=== PATIENT | female | born 1935 | race Caucasian/White ===

== ENCOUNTER 2024-12-26 22:41 | Inpatient (IN) | payer OTHER, SELFPAY ==
[2024-12-26] VITALS (10 sets, daily range): BP systolic 100–161; BP diastolic 59–94; PULSE 67–69
--- NOTE | 2024-12-26 13:53 | ED.GENMED ---
ED Provider Triage
<Yael Pelletier PA-C - Last Filed: 12/26/24 14:01>
-
Patient seen by provider in Triage?: Seen in Triage
89 y/o F CHF, AF on coumadin
CKD
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
here with generalized not feleing well x 1 week
some progressive lower abd pain and anorexia
no vomiting, diarrhea, fever, chills, sore throat
pt went to PCP and was sent to [facility] yesterday whree she waited 9 hours and LWBS
pt called the PCP and was told to come here instead
she has never been here
apparently in the office she hadelevated WBCs in her urine
no known aortic disease
A medical screening examination has been initiated by a qualified medical provider. Based on the assessment performed at this time, it has been determined that an emergent medical condition may exist and the patient has been informed that further
medical evaluation and possible additional diagnostic testing may be needed.
HPI: This is a medical evaluation conducted in person to initiate diagnostic evaluation and provide initial therapeutics. Please see further documentation by the treating clinician.
GENERAL: Alert , in no apparent distress
ENT: No visible abnormalities
LUNGS: No acute respiratory distress
NEUROLOGICAL: Alert and oriented
abdomen: maybe some mild lower abd tenderness; difficult while in the chair
SKIN: Skin intact. No visible changes.
MUSCULOSKELETAL: Moving extremities normally
PSYCH: Normal and appropriate interaction.
89-year-old female with history of a colon resection previously presents for lower abdominal pain, anorexia, not feeling well for about a week. May have some WBCs in the urine on testing by her family doctor. Patient has no UTI symptoms however.
She feels weak and she is dropping her blood pressure when she stands according to the family doctor. Patient does feel lightheaded
Will send screening labs, coags, UA, anticipate patient may need CT with oral contrast
History of Present Illness
<Yael Pelletier PA-C - Last Filed: 12/26/24 14:01>
General
Chief Complaint: Abdominal Pain
Time Seen by Provider: 12/26/24 17:40
<Sandy Salcedo DO - Last Filed: 12/26/24 20:37>
History of Present Illness
History of Present Illness:
89-year-old female with prior history of colon cancer and vulvar cancer, hypertension presenting to the emergency department for abdominal pain and generalized weakness and fatigue. Patient reports about 2 weeks ago she started to feel unwell with
nausea and abdominal discomfort. She lives in an independent facility, with GI bug going around the facility. She did not leave the room because she did not want to get more sick. Reports that she has had overall decreased p.o. intake. She has
had lightheadedness and fatigue. She went to her doctor yesterday, was noted to have weight loss and orthostatic hypotension, was advised to go to the ER. She went to [facility], however had to wait for 8 hours so went home. Does note that they
checked her urine, had some signs of infection. She notes generalized abdominal discomfort. Denies any vomiting. Denies any diarrhea. Denies fever. Denies additional acute medical complaints
Phy Exam
<Sandy Salcedo DO - Last Filed: 12/26/24 20:37>
Physical Exam
Physical Exam:
General: Well-appearing, no clinical signs of dehydration, nontoxic and in no acute distress
HEENT: protecting airway
Neck: appears supple
CV: Normal heart rate, regular rhythm
Resp: No accessory muscle use, no increased work of breathing, lungs clear to auscultation bilaterally
Abd: Soft and non-distended, generalized nonfocal tenderness
Extremities: No deformities, no swelling, no erythema
Neuro: alert, no focal neurologic deficit
: deferred
Rectal: deferred
Psych: Normal affect
Skin: Intact
Course
<Yael Pelletier PA-C - Last Filed: 12/26/24 14:01>
Orders/Labs/Results
Orders:
Orders
12/26/24 13:56
Electrocardiogram (*1) Urgent
Reason for Study: Abdominal Pain
EKG- Treatment ONCE
12/26/24 14:00
CT Abd/pel W Iv And Oral Contr Urgent
Comment:
Reason For Exam: abd pain, colon ca s/p resection;
Iohexol [Omnipaque] See Protocol PO NOW STA
12/26/24 14:22
COVID-19 Antigen Urgent
Source: Nasal Swab
Influenza A+B Rapid Molecular Urgent
SURESH Source: Nasal Swab
Specimen Description:
12/26/24 18:00
Complete Blood Count/With Diff Urgent
Comprehensive Metabolic Panel Urgent
Lipase Urgent
PTT Urgent
Prothrombin Time Urgent
12/26/24 18:24
Orthostatic VS- Treatment ONCE
0.9% Sodium Chloride 1000 ml [Nss] 1,000 ml IV BOLUS
12/26/24 20:27
Urinalysis Reflex To Culture Urgent
Date Specimen was Collected: 12/26/24
Time Specimen was Collected: 17:10
Abnormal Lab Results
12/26/24
18:00
MCH 26.3 L pg
(27.0-31.0)
MCHC 30.9 L g/dL
(33.0-37.0)
RDW 18.8 H %
(11.5-14.5)
Abs Immat Gran (auto) 0.1 H 10^3/uL
(0-0.05)
Absolute Neuts (auto) 7.6 H 10^3/uL
(1.4-6.5)
Absolute Lymphs (auto) 1.1 L 10^3/uL
(1.2-3.4)
Absolute Monos (auto) 1.1 H 10^3/uL
(0.1-0.6)
Immature Gran % 0.6 H %
(0-0.5)
Neutrophils % 76.0 H %
(42.2-75.2)
Lymphocytes % 10.5 L %
(20.5-51.1)
Monocytes % 10.5 H %
(1.7-9.3)
PT 46.4 H Sec
(11.4-14.6)
APTT 45.0 H Sec
(23.4-35.0)
BUN 24 H mg/dl
(7-17)
Creatinine 1.5 H mg/dL
(0.6-1.0)
Glucose 101 H mg/dl
(70-99)
Calcium 10.5 H mg/dl
(8.4-10.2)
Alkaline Phosphatase 168 H U/L
(38-126)
12/26/24 18:00
12/26/24 18:00
Vital Signs
Initial and Last Documented VS:
Initial Vital Signs
Temp Pulse Resp BP Pulse Ox
98 F 66 16 125/77 97
12/26/24 13:51 12/26/24 13:51 12/26/24 13:51 12/26/24 13:51 12/26/24 13:51
Last Documented Vital Signs
Temp Pulse Resp BP Pulse Ox
97.4 F 71 15 114/66 98
12/26/24 17:00 12/26/24 19:51 12/26/24 19:51 12/26/24 19:05 12/26/24 19:15
<Sandy Salcedo DO - Last Filed: 12/26/24 20:37>
Orders/Labs/Results
Orders:
Orders
12/26/24 13:56
Electrocardiogram (*1) Urgent
Reason for Study: Abdominal Pain
EKG- Treatment ONCE
12/26/24 14:00
CT Abd/pel W Iv And Oral Contr Urgent
Comment:
Reason For Exam: abd pain, colon ca s/p resection;
Iohexol [Omnipaque] See Protocol PO NOW STA
12/26/24 14:22
COVID-19 Antigen Urgent
Source: Nasal Swab
Influenza A+B Rapid Molecular Urgent
SURESH Source: Nasal Swab
Specimen Description:
12/26/24 18:00
Complete Blood Count/With Diff Urgent
Comprehensive Metabolic Panel Urgent
Lipase Urgent
PTT Urgent
Prothrombin Time Urgent
12/26/24 18:24
Orthostatic VS- Treatment ONCE
0.9% Sodium Chloride 1000 ml [Nss] 1,000 ml IV BOLUS
12/26/24 20:27
Urinalysis Reflex To Culture Urgent
Date Specimen was Collected: 12/26/24
Time Specimen was Collected: 17:10
Abnormal Lab Results
12/26/24
18:00
MCH 26.3 L pg
(27.0-31.0)
MCHC 30.9 L g/dL
(33.0-37.0)
RDW 18.8 H %
(11.5-14.5)
Abs Immat Gran (auto) 0.1 H 10^3/uL
(0-0.05)
Absolute Neuts (auto) 7.6 H 10^3/uL
(1.4-6.5)
Absolute Lymphs (auto) 1.1 L 10^3/uL
(1.2-3.4)
Absolute Monos (auto) 1.1 H 10^3/uL
(0.1-0.6)
Immature Gran % 0.6 H %
(0-0.5)
Neutrophils % 76.0 H %
(42.2-75.2)
Lymphocytes % 10.5 L %
(20.5-51.1)
Monocytes % 10.5 H %
(1.7-9.3)
PT 46.4 H Sec
(11.4-14.6)
APTT 45.0 H Sec
(23.4-35.0)
BUN 24 H mg/dl
(7-17)
Creatinine 1.5 H mg/dL
(0.6-1.0)
Glucose 101 H mg/dl
(70-99)
Calcium 10.5 H mg/dl
(8.4-10.2)
Alkaline Phosphatase 168 H U/L
(38-126)
12/26/24 18:00
12/26/24 18:00
Vital Signs
Initial and Last Documented VS:
Initial Vital Signs
Temp Pulse Resp BP Pulse Ox
98 F 66 16 125/77 97
12/26/24 13:51 12/26/24 13:51 12/26/24 13:51 12/26/24 13:51 12/26/24 13:51
Last Documented Vital Signs
Temp Pulse Resp BP Pulse Ox
97.4 F 71 15 114/66 98
12/26/24 17:00 12/26/24 19:51 12/26/24 19:51 12/26/24 19:05 12/26/24 19:15
<Sandy Salcedo, DO - Last Filed: 12/26/24 20:37>
MDM/Problems Addressed
MDM/Problems Addressed:
89-year-old female with prior history of colon cancer and vulvar cancer as well as hypertension presenting for fatigue, weakness, abdominal discomfort. Vital signs on arrival are normal.
On exam, patient is resting comfortably, no acute distress. She is nontoxic in appearance. She has generalized nonfocal tenderness abdomen. Given duration of symptoms, CT abdomen pelvis ordered prior to my assessment, in agreement with workup to
rule out acute intra-abdominal pathology. Patient had labs obtained prior to my assessment, relatively unremarkable, mild elevation of creatinine, which may be secondary to mild dehydration. Will repeat orthostatic vital signs, report that they
were positive at primary care doctor yesterday. Urinary tract infection is also consideration. Patient noted to have a positive urine infection at [facility] yesterday, however was never seen by provider to treat it.
20:20 - CT of the abdomen pelvis without acute findings. There is mention of subtle finding to the colon, which will need follow-up given her prior history of colon cancer. Orthostatics were positive with drop of blood pressure from sitting to
standing. Patient lives at home by herself, do feel unsafe disposition, fall risk. Patient notes she became dizzy upon standing. In addition INR is 5. Will hold Coumadin. Pending urinalysis with likely plan for admission
<Sandy Salcedo DO - Last Filed: 12/26/24 20:37>
*Critical Care Note
Total Time (30-74mins, 75-104mins- exclusive of procedures): Not Applicable
ED Attending Note
<Yael Pelletier PA-C - Last Filed: 12/26/24 14:01>
-
Portions of this chart may have been created with voice recognition software.� Occasional wrong word or��sound alike� substitutions may have occurred due to the inherent limitations of voice recognition software.
Discharge Plan
Departure
Referrals:
Geni Ryder MD [Family Provider] -
Interventions
Interventions:
*Risk Screen - Suicide Last Done: 12/26/24 14:03
*General Assessment Last Done: 12/26/24 18:22
*Neglect/Abuse Screening Last Done: 12/26/24 14:03
ED- Fall Risk Assessment Last Done: 12/26/24 18:22
*ED COVID-19 Vaccine History Last Done: 12/26/24 18:22
MW-Nmgvkw-Ghghduksyy Assessment Last Done: 12/26/24 18:22
Discharge Date and Time
Print Language: TAIWANESE
[2024-12-26 15:04] LABS: COVID-19 Antigen Negative (Negative)
[2024-12-26] MEDS: OMNIPAQUE 50 ML PO (17:15)
[2024-12-26 18:14] LABS: % Basophils 0.4 % (0-2); % Immature Granulocytes 0.6 % (0-0.5); % Lymphocytes 10.5 % (20.5-51.1); % Monocytes 10.5 % (1.7-9.3); Absolute Eosinophils 0.2 10^3/uL (0-0.7); Absolute Immature Granulocytes 0.1 10^3/uL (0-0.05); Absolute Lymphocytes 1.1 10^3/uL (1.2-3.4); Absolute Monocytes 1.1 10^3/uL (0.1-0.6); Absolute Neutrophils 7.6 10^3/uL (1.4-6.5); Hematocrit 45.6 % (37.0-47.0); Hemoglobin 14.1 g/dL (12.0-16.0); Mean Corp Hgb Conc. 30.9 g/dL (33.0-37.0); Mean Corpuscular Hgb 26.3 pg (27.0-31.0); Mean Corpuscular Volume 84.9 fL (81.0-99.0); Mean Platelet Volume 9.8 fL (7.4-10.4); Nucleated Red Blood Cells % 0 %; Platelet Count 262 10^3/uL (130-400); Red Blood Cell Count 5.37 10^6/uL (4.20-5.40); Red Cell Dist. Width 18.8 % (11.5-14.5)
[2024-12-26 18:23] LABS: PT 46.4 Sec (11.4-14.6)
[2024-12-26] MEDS: NSS 1000 IV (18:29)
[2024-12-26 19:10] LABS: ALT (SGPT) 15 U/L (0-35); AST (SGOT) 21 U/L (14-36); Albumin 4.3 g/dl (3.5-5.0); Alkaline Phosphatase 168 U/L (38-126); Blood Urea Nitrogen 24 mg/dl (7-17); Calcium 10.5 mg/dl (8.4-10.2); Carbon Dioxide 23 mmol/L (22-30); Chloride 101 mmol/L (98-107); Glucose 101 mg/dl (70-99); Lipase 137 U/L (23-300); Sodium 138 mmol/L (135-145); Total Bilirubin 0.5 mg/dl (0.2-1.3); Total Protein 7.6 g/dl (6.3-8.2); eGFR 33.52
[2024-12-26 20:33] LABS: Urine Albumin 1+ (Neg - Trace); Urine Bilirubin Negative (Negative); Urine Character Clear (Clear); Urine Color Yellow; Urine Glucose Negative (Negative); Urine Ketone Negative (Negative); Urine Leukocyte 2+ (Negative); Urine Nitrite Negative (Negative); Urine Occult Blood 1+ (Negative); Urine Specific Gravity 1.015 (<1.030); Urine Urobilinogen Negative (Neg - 1+); Urine pH 6.5 (5.0-9.0)
[2024-12-26 20:40] LABS: Urine Squamous Cell >30 /LPF (Few)
[2024-12-26 20:41] LABS: Urine Bacteria Many (Negative); Urine White Cell 26-30 /HPF (0-5)
[2024-12-26] MEDS: MAXIPIME 2000 MG IV (20:52)
--- NOTE | 2024-12-26 21:02 | HPS.HSE ---
Family Physician
-
Family Physician: Geni Ryder
Chief Complaint
-
Dizziness x 1 week, lower abdominal pain 3 days, nausea, fatigue x 2 weeks, weight loss 18 pounds 4 months
History of Present Illness
89-year-old female complaining of generalized weakness x 1 week with dizziness and hypotension. She is also been complaining of generalized lower abdominal pain x 3 days. She is also been complaining of nausea with decreased oral intake, increased
fatigue over the past 2 weeks with, weight loss of 18 pounds since August 21, 2024. The patient went to [facility] yesterday where she waited 9 hours and left without being seen. She denies any urinary symptoms, diarrhea, vomiting, chest pain,
palpitations, shortness breath, cough, headache, fever, chills. She has past medical history of colon CA with mets to liver status post colon resection no ostomy 2002 status post chemotherapy via port for 2 years and liver chemoembolization patient
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
entire right to left upper portion of vulva July 2024 , HTN, chronic CHF, CK 3B baseline creat 1.6/1.7.
Medical History
Past Medical History
Past Medical History: Reports Other
Additional Past Medical History:
colon CA with mets to liver status post colon resection no ostomy 2002 status post chemotherapy via port for 2 years a
liver chemoembolization patient stopped any kind of chemotherapy in 2004
history of lung cancer right upper lobe wedge resection
nodule in left and right lung less than 1 cm being followed by pulmonary
A-fib on Coumadin
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
HTN
chronic CHF
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
Past Surgical History: Reports Other
Additional Past Surgical History:
liver chemoembolization patient stopped any kind of chemotherapy in 2004
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
port for chemo 2002 with history of removal
Social History
Tobacco: Non-smoker
Alcohol: None
Drug: None
Personal: Single
Living: Care Home (Lives in own apartment)
Employment: Retired
Family History
Family History: Not pertinent
Allergies / Home Medications
Allergies reflects when Allergies were last updated in [facility].
Home Medications with original date entered in [facility]
Allergy/Medication List:
Allergies
Allergy/AdvReac Type Severity Reaction Status Date / Time
fish oil Allergy Unknown Verified 12/26/24 14:02
NSAIDS (Non-Steroidal Allergy Unknown Verified 12/26/24 14:02
Anti-Inflamma
[id number]-GRP-[id number] Reductase Allergy Unknown Verified 12/26/24 14:02
Inhibitor
Home Medications
albuterol sulfate 90 mcg/actuation aerosol inhaler 2 puff inhalation R Q6HPRN PRN sob 12/26/24
amlodipine 5 mg tablet 5 mg PO BID 12/26/24
ascorbic acid (vitamin C) 500 mg tablet (Vitamin C) 500 mg PO DAILY 12/26/24
atenolol 50 mg tablet 50 mg PO DAILY 12/26/24
bupropion HCl 300 mg 24 hr tablet, extended release 300 mg PO DAILY 12/26/24
calcium carbonate (Calcium 600) 600 mg PO HS 12/26/24
cyanocobalamin (vitamin B-12) 1,000 mcg tablet 1,000 mcg PO DAILY 12/26/24
furosemide 40 mg tablet 40 mg PO DAILY 12/26/24
losartan 50 mg tablet 50 mg PO DAILY 12/26/24
pantoprazole 40 mg tablet,delayed release 40 mg PO DAILY 12/26/24
potassium chloride 10 mEq capsule,extended release 20 meq PO BID 12/26/24
warfarin 2.5 mg tablet 2.5 mg PO MOFR 12/26/24
warfarin 2.5 mg tablet 2.5 mg PO SUTUWETHSA 12/26/24
Review of Systems
-
History Source: Patient and Family (Daughter Kortney and Blanca at bedside)
A 12 point ROS was completed and negative except as noted: Yes
Constitutional: Reports Weight Loss (18 pounds past 4 months); Denies Fever or Chills
EENT: Denies Sore Throat or Runny Nose
Respiratory: Denies Cough or Trouble Breathing
Cardiac: Denies Chest Pain, Diaphoresis, Palpitations or Syncope
Abdomen/GI: Reports Abdominal Pain (Lower abdomen left and right), Nausea (2 weeks) and Anorexia (2 weeks); Denies Vomiting, Diarrhea, Constipated, Bloody Stools or Black Stools
: Denies Dysuria, Frequency, Flank Pain, Incontinence, Difficulty Voiding or Urgency
Musculoskeletal: Denies Joint Pain, Joint Swelling or Edema
Skin: Denies Itching or Rash
Neurological: Reports Dizzy and Weakness (Generalized x 2 weeks); Denies Headache
Endocrine: Reports No Symptoms
Hematologic/Lymphatic: Reports No Symptoms
Psych: Reports Calm
Physical Exam
Vital Signs
Vital Signs
Temp Pulse Resp BP Pulse Ox
97.4 F 71 15 114/66 98
12/26/24 17:00 12/26/24 19:51 12/26/24 19:51 12/26/24 19:05 12/26/24 19:15
Physical Exam
General: Comfortable and Conversant; No Pain, Fever or Chills
HEENT: NormoCephalic, Anicteric, Moist mucous membranes, PERRLA, [place] Conjunctivae and No Ptosis
Respiratory: Clear; No Wheezes, Rales or Rhonchi
Cardiac: S1/S2 and Irregular Rhythm (A-fib); No Murmur, Rub, Gallop or Peripheral Edema
GI: Soft, Non Distended, Normal Bowel Sounds, Tender (Epigastric and across lower abdomen) and No Hepatosplenomegaly
Rectal: Deferred by Provider
Genito-urinary: Deferred by me
Musculoskeletal: No Clubbing, No Cyanosis and No Edema
Skin: Warm and Dry; No Rash or Jaundice
Neuro: AO x 3, No Motor Deficits, Nonfocal/grossly intact, Cranial Nerves Intact and No Sensory Deficits; No Slurred Speech, Facial Droop or Tremors
Psych: Calm
Laboratory Results
-
12/26/24 18:00
12/26/24 18:00
Laboratory Results
PT 46.4 Sec (11.4-14.6) H 12/26/24 18:00
INR 5.00 12/26/24 18:00
APTT 45.0 Sec (23.4-35.0) H 12/26/24 18:00
Total Bilirubin 0.5 mg/dl (0.2-1.3) 12/26/24 18:00
AST 21 U/L (14-36) 12/26/24 18:00
ALT 15 U/L (0-35) 12/26/24 18:00
Alkaline Phosphatase 168 U/L (38-126) H 12/26/24 18:00
Lipase 137 U/L (23-300) 12/26/24 18:00
Impression/Plan
-
Impression/plan:
Admit to telemetry
#Orthostatic hypotension likely secondary to volume depletion
#Hx essential HTN
2 weeks nausea with decreased oral intake
Orthostatic vitals:
Supine 141/77 heart rate 69
Sitting 161/59, HR 67
Standing BP 114/66, HR 68
-IV NSS 1 L given in ER bolus
-Continue IV NSS 80 cc/h x 2 L max
-Hold Lasix 40 mg daily due to hypotension
-Check orthostatics in a.m.
-PT/OT consult
#Supratherapeutic INR on Coumadin for A-fib Hx
#Permanent A-fib Hx
INR 5
Will HOLD Coumadin
Repeat INR in a.m.
EKG: A-fib 66 bpm, QTc 461 MS ,T wave flattening anterior leads no prior EKGs
#Pyuria asymptomatic
-The patient was given IV cefepime 2 mg in ER
Would hold further ABX and follow urine culture given asymptomatic
-Will repeat urinalysis with reflex in a.m.
#Generalized lower abdominal Pain/WEIGHT LOSS concern for possible recurrence of colon malignancy given Nodularity presacral space on CT
#History of colon CA with mets to liver status post colon resection 2002 status post chemotherapy x 2 years via port and liver chemoembolization-patient then decided to stop any further chemotherapy
Weight loss 18 pounds in last 4 months since July 229 LBS to current 211 LBS
-Consult GI
CT abdomen pelvis with IV and oral contrast:
1. Mild hazy nodularity in the presacral space, 1.7 x 1.0 cm nonspecific and probably chronic or inflammatory. A metastasis is not excluded in the setting of colon cancer.
Direct correlation with previous outside imaging of the abdomen and pelvis would be helpful to assess for stability.
2. Right hemicolectomy with an ileocolonic anastomosis.
3. No other acute inflammatory process identified in the abdomen or pelvis.
#Lung cancer status post right upper lung wedge resection unclear type
2 known nodules right and left lobe less than 1 cm per daughters being followed by pulmonary
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
healed well without complications
#CKD 3B
Creat 1.5, bun 24 GFR 33.5 , baseline labs per patient's portal and phone 1.6/1.7
-Follow BMP
#Chronic CHF
I/O, daily weights
-Hold Lasix 40 mg daily due to hypotension
DVT prophylaxis
Current supratherapeutic INR on Coumadin
DNR per patient with daughters Kortney and Amee at bedside
--- NOTE | 2024-12-26 22:07 | W.PN.UPDATE ---
Update Note
Progress Note Update
Patient seen in conjunction with FIELD INSTALLATION TECHNICIAN. I agree with the findings on his physical. I concur with the plan listed otherwise.
Briefly, this is a 89-year-old female with past medical history of colorectal cancer with mets to liver status post resection, remote chemo as well as history of chemoembolization, hypertension, CHF with preserved EF, chronic atrial fibrillation on
anticoagulation with Coumadin, who presents to the emergency department from PMD office with complaints of weakness dizziness and findings of orthostatic hypotension on from PCP.
Patient reports about 2 weeks of abdominal discomfort localized to the bilateral lower quadrant with associated nausea. Denies any diarrhea. Denies any vomiting. She has had no fevers or chills. She denies dysuria, hematuria, frequency or
urgency or incontinence. She denies any abdominal rash. She reports that she started increased dose of bupropion in late October but otherwise no medication changes. She reports about a 12 pound weight loss in 3 weeks.
Overall she reports orthostatic dizziness with standing. Reports appetite is about the same except slightly decreased over the last week.
In the emergency department, she was afebrile, blood pressure was 150/80 supine with a pulse of 68 satting 99% on room air. ECG shows atrial fibrillation at a rate of 61. CBC was unremarkable. Electrolytes BUN/creatinine were at baseline and
shows no acute abnormalities. UA is equivocal with over 30 squames, WBCs, bacteria, leukocyte esterase, negative nitrites. Lipase negative. LFTs unremarkable.
CT of the abdomen and pelvis mild hazy nodularity in the presacral space, nonspecific and probably chronic or inflammatory. A metastasis is not excluded in the setting of colon cancer. Direct correlation with previous outside imaging of the abdomen
and pelvis would be helpful to assess for stability. Right hemicolectomy with an ileocolonic anastomosis.
Abdominal exam is benign.
Assessment and plan
Patient with new finding of orthostatic hypotension over the last 2 weeks. She dropped her blood pressure from 1 55-1 14 systolic on standing. She feels dizzy. ECG is unremarkable. This is in the setting of about a pound weight loss and
decreased p.o. intake. Suspect possible will hypovolemic orthostasis in the setting of multiple antihypertensives and diuretic use. Cannot rule out autonomic dysfunction. Weight loss over 3 weeks can be possibly related to recurrence of disease.
No findings currently to explain abdominal pain, may be related to acute cystitis but patient has no other symptoms consistent with cystitis. UA is equivocal..
Orthostatic Hypotension
- admit to med/surg
- continue IV fluids for a total of 2 L, repeat orthostatic v/s daily
- hold lasix for now
- consider holding amlodipine and tolerating supine hypertension
- repeat u/a after IV fluids, if positive continue ceftriaxone
- check am cortisol
perm AFIB
- elevated INR, hold coumadin, f/u inr
- continue atenolol
HTN
- holding lasix
- continue losartan for now
- consider reduced amlodipine
ABD pain - Unclear etiology. Given h/o surgeries and cancer may require further eval.
- finalize evidence for cystitis with repeat u/a and culture
- consult GI
- pain control and antinausea
DVT PPX - lovenox sq
Code status - DNR
[2024-12-27] VITALS (10 sets, daily range): BP systolic 116–172; BP diastolic 63–83; PULSE 62–69; O2SAT 97; BMI 40.3
--- NOTE | 2024-12-27 | PTCARENOTE ---
Pt transported from ED to 3W via stretcher. Pt 1 assist from stretcher to bed, Vitals obtained and stable. Pt started on NS @ 80/hr. Oriented to room, call haney within reach.
[2024-12-27] MEDS: NSS 1000 IV (00:17)
[2024-12-27 05:55] LABS: % Basophils 0.4 % (0-2); % Eosinophils 1.5 % (0-6); % Immature Granulocytes 0.6 % (0-0.5); % Lymphocytes 6.7 % (20.5-51.1); % Monocytes 8.9 % (1.7-9.3); % Neutrophils 81.9 % (42.2-75.2); Absolute Eosinophils 0.2 10^3/uL (0-0.7); Absolute Immature Granulocytes 0.1 10^3/uL (0-0.05); Absolute Lymphocytes 0.7 10^3/uL (1.2-3.4); Absolute Monocytes 0.9 10^3/uL (0.1-0.6); Absolute Neutrophils 8.6 10^3/uL (1.4-6.5); Hematocrit 36.2 % (37.0-47.0); Hemoglobin 11.7 g/dL (12.0-16.0); Mean Corp Hgb Conc. 32.3 g/dL (33.0-37.0); Mean Corpuscular Hgb 26.8 pg (27.0-31.0); Mean Platelet Volume 9.7 fL (7.4-10.4); Nucleated Red Blood Cells % 0 %; Platelet Count 229 10^3/uL (130-400); Red Blood Cell Count 4.36 10^6/uL (4.20-5.40); Red Cell Dist. Width 18.4 % (11.5-14.5); White Blood Cell Count 10.4 10^3/uL (4.8-10.8)
[2024-12-27 06:16] LABS: INR 5.67
[2024-12-27 06:21] LABS: ALT (SGPT) 13 U/L (0-35); AST (SGOT) 18 U/L (14-36); Albumin 3.5 g/dl (3.5-5.0); Alkaline Phosphatase 148 U/L (38-126); Blood Urea Nitrogen 21 mg/dl (7-17); Calcium 9.6 mg/dl (8.4-10.2); Carbon Dioxide 23 mmol/L (22-30); Chloride 103 mmol/L (98-107); Estimated Creatinine Clearance 32 ml/min; Glucose 75 mg/dl (70-99); Potassium 3.6 mmol/L (3.5-5.1); Sodium 136 mmol/L (135-145); Total Bilirubin 0.6 mg/dl (0.2-1.3); Total Protein 6.3 g/dl (6.3-8.2)
[2024-12-27] MEDS: COZAAR 50 MG PO (08:13)
[2024-12-27] MEDS: TENORMIN 50 MG PO (08:13)
[2024-12-27] MEDS: VITAMIN C 500 MG PO (08:13)
[2024-12-27] MEDS: PROTONIX 40 MG PO ×2 (08:14→20:41)
[2024-12-27] MEDS: WELLBUTRIN XL (24 hour extended release) 300 MG PO (08:14)
[2024-12-27] MEDS: NORVASC 5 MG PO ×2 (08:14→20:42)
[2024-12-27] MEDS: VITAMIN B-12 1000 MCG PO (08:14)
[2024-12-27] MEDS: TYLENOL 650 MG PO ×3 (08:17→20:42)
--- NOTE | 2024-12-27 09:33 | PTOTSP ---
pt currently demonstrates ability to complete simple ADLs, functional transfers, ambulation with supervision to no assistance. no acute OT needs identified at this time, will sign off.
--- NOTE | 2024-12-27 10:00 | CON.GI ---
Addendum entered and electronically signed by Lavinia Duarte MD 12/27/24 18:39:
I saw and examined the patient.
The medical historian note was reviewed and I agree with the note.
--Abdominal pain/fatigue/dizziness. CT abdomen on admission-no acute GI pathology. Nonspecific hazy nodularity in the presacral space-inflammatory versus metastasis. UA +. Empirically being treated for UTI
-- History of colon cancer with mets to liver in 2002 s/p resection plus chemo.-currently not on any treatment. Last treatment was in 2004. No records available. Last colonoscopy 5 to 6 years back and was reassured.
--Lung cancer s/p wedge resection
-- A-fib on Coumadin. Supratherapeutic INR on admission
-- Drop in Hb . no overt GI bleeding. Possible dilution. Stool occult testing negative
plan
Would recommend oncology follow-up with regard to CT findings/weight loss history/prior multiple cancer history (no prior records available). Likely require PET scan .
Patient/patient daughter would like to hold off on invasive GI procedures considering age
No further recommendation. Will sign off.
Original Note:
Consultation
-
Date/Time Consultation Requested: 12/26/24 22:04
Date/Time Consultation Performed: 12/27/24 10:00
Requesting Provider: Kristi Brizuela CRNP
Performing Provider: Rachel Peterson MD
Reason for Consultation: Abdominal pain
Medical History
Chief Complaint / HPI
Chief Complaint: Generalized weakness
History of Present Illness:
The patient is a 89 years old lady who presented to the ER on 11/2727 for an evaluation of feeling fatigue, abdominal discomfort complicated with nausea and low appetite for over the past 10 days. The patient has a past medical history of CHFpEF,
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
2004 as well as history of chemoembolization due liver met. Per patient report, she saw her oncologist for the last time about a year ago when she had her last PET scan which was not remarkable for any mets and, her last colonoscopy was about 5
or 6 years ago at [facility] which showed no polyps or mass. At that time she was not recommended any further colonoscopy given her age over 82. The patient endorses recent lower abdominal pain which improved today and she reports some
abdominal discomfort on the upper abdominal area especially localized on the right side. She denies associated GI symptoms like hematochezia,constipation, diarrhea, heartburn, hematemesis, vomiting, sick contacts, NSAID use. But the patient
reports feeling nauseous and dizzy for last 10 days and she started to have intermittent some black brown-colored stool about 6 months ago. Reports normal bowel movements daily usually and does not feel constipated/bloated too much.
Past Medical History
Past Medical History: Arrhythmias (A-fib on Coumadin), Cancer (Colon cancer in 2002 (s/p colon resection-no ostomy/tumor embolization due liver met) -stop chemotherapy in 2004//history of lung cancer s/p right upper lobe wedge resection/extensive
vulvar cancer), CHF, HTN and Other (CKD stage III)
Past Surgical History: Other (Radical vulvectomy entire right to left upper portion of vulva July 2024 )
Social History
Tobacco: Non-Smoker
Alcohol: None
Drug: None
Personal: Single
Living: Detention
Employment: Retired
Family History
Family History: Reviewed & Not Pertinent
Allergies / Home Medications
Allergy/AdvReac Type Severity Reaction Status Date / Time
fish oil Allergy Unknown Verified 12/26/24 14:02
NSAIDS (Non-Steroidal Allergy Unknown Verified 12/26/24 14:02
Anti-Inflamma
Felcwxy-HIT-LeY Reductase Allergy Unknown Verified 12/26/24 14:02
Inhibitor
�Medication �Instructions �Recorded
albuterol sulfate 90 mcg/actuation 2 puff inhalation R Q6HPRN PRN sob 12/26/24
aerosol inhaler
amlodipine 5 mg tablet 5 mg PO BID 12/26/24
ascorbic acid (vitamin C) 500 mg 500 mg PO DAILY 12/26/24
tablet (Vitamin C)
atenolol 50 mg tablet 50 mg PO DAILY 12/26/24
bupropion HCl 300 mg 24 hr tablet, 300 mg PO DAILY 12/26/24
extended release
calcium carbonate (Calcium 600) 600 mg PO HS 12/26/24
cyanocobalamin (vitamin B-12) 1,000 mcg PO DAILY 12/26/24
1,000 mcg tablet
furosemide 40 mg tablet 40 mg PO DAILY 12/26/24
losartan 50 mg tablet 50 mg PO DAILY 12/26/24
pantoprazole 40 mg tablet,delayed 40 mg PO DAILY 12/26/24
release
potassium chloride 10 mEq 20 meq PO BID 12/26/24
capsule,extended release
warfarin 2.5 mg tablet 2.5 mg PO MOFR 12/26/24
warfarin 2.5 mg tablet 2.5 mg PO SUTUWETHSA 12/26/24
Review of Systems
-
History Source: Patient and Family
Constitutional: Reports Weight Loss
Vital Signs
Temp Pulse Resp BP Pulse Ox
97.8 F 72 16 172/83 98
12/27/24 07:30 12/27/24 08:14 12/27/24 07:30 12/27/24 08:14 12/27/24 07:30
Physical Exam
Results
WBC 10.4 10^3/uL (4.8-10.8) 12/27/24 05:21
Hgb 11.7 g/dL (12.0-16.0) L 12/27/24 05:21
Hct 36.2 % (37.0-47.0) L 12/27/24 05:21
MCV 83.0 fL (81.0-99.0) 12/27/24 05:21
Plt Count 229 10^3/uL (130-400) 12/27/24 05:21
Absolute Neuts (auto) 8.6 10^3/uL (1.4-6.5) H 12/27/24 05:21
PT 51.0 Sec (11.4-14.6) H 12/27/24 05:21
INR 5.67 H* 12/27/24 05:21
APTT 45.0 Sec (23.4-35.0) H 12/26/24 18:00
Sodium 136 mmol/L (135-145) 12/27/24 05:21
Potassium 3.6 mmol/L (3.5-5.1) 12/27/24 05:21
Chloride 103 mmol/L (98-107) 12/27/24 05:21
Carbon Dioxide 23 mmol/L (22-30) 12/27/24 05:21
BUN 21 mg/dl (7-17) H 12/27/24 05:21
Creatinine 1.3 mg/dL (0.6-1.0) H 12/27/24 05:21
Calcium 9.6 mg/dl (8.4-10.2) 12/27/24 05:21
Total Bilirubin 0.6 mg/dl (0.2-1.3) 12/27/24 05:21
AST 18 U/L (14-36) 12/27/24 05:21
ALT 13 U/L (0-35) 12/27/24 05:21
Alkaline Phosphatase 148 U/L (38-126) H 12/27/24 05:21
Lipase 137 U/L (23-300) 12/26/24 18:00
Diagnostic Image Results:
Prior GI Procedures:
EGD:
Colonoscopy:
Assessment / Plan
-
Assessment
Ms Centeno is a 89 years old lady who was admitted to the hospital for an evaluation of feeling fatigue, abdominal discomfort complicated with nausea and low appetite for over the past 10 days. The patient has a significant past medical history of
GI problems including history of colon cancer which diagnosed in 2002 with mets to liver status post resection, remote chemo with last close in 2004 as well as history of chemoembolization due liver met. Per patient report, she was seen bu her
oncologist for the last time about a year ago when she had her last PET scan which was not remarkable for any mets. Her last colonoscopy was done about 5 or 6 years ago at [facility] which was not significant. The patient endorses recent
lower abdominal pain which improved today, considering can be related with her UTI. Additionally, she reports some abdominal discomfort on the upper abdominal area especially localized on the right side fr a while and having intermittent some
black brown-colored stool about 6 months ago. Her lab results shows decreased hgb levels from 14.1 to 11.7 since admission,normal BUN level to 21, Normal LFTs, increased INR to 5.7 (Coumadin held since admission) and CT scan showed a 0.9 cm
hyperenhancing focus at the hepatic dome (likely a flash filling hemangioma), mild hazy nodularity in the presacral space (met? inflammation?) and right hemicolectomy with an ileocolonic anastomosis.
Impression
Abdominal Pain
Hx of intermittent melena
Hx pf colon cancer s/p colectomy in 2002
Hx of liver met with chemoembolization
A-fib (On Coumadin)
CHFpEF
HTN
CKD stage III
Plan
#Abdominal Pain
-Hx of colon cancer s/p colectomy in 2002 with liver met ( chemoembolization in 2002 or 2004)/Last chemo taking through port in 2004
-Abd CT: Not remarkable for GI problems expect a possible 0.9 cm hemangioma
-Abd CT shows a a possible mass in the presacral space
-Oncology consultation can be considered
-Lower abdominal pain is improving likely secondary to UTI
#Hx of questionable intermittent melena might be likely from lower GI -secondary to colon mass/mets vs Coumadin use
-Hx of dark brown colored stool since last 6 months
-Continue to hold Coumadin- INR 5.6
-Hemoccult negative/last BM yesterday brown color
-No active signs of GI bleeding
-Increase PPI dose BID
-Follow up stool
-Follow up hgb daily
-Follow up with her oncologist at outpatient setting
-
-
Thank you for consultation and allowing me to participate in the patient's care. Please call the education analyst GI physician during the after hours with any questions or concerns.
[2024-12-27] MEDS: STERILE WATER FOR INJECTION 10 ML IV (10:01)
[2024-12-27] MEDS: ROCEPHIN 1000 MG IV (10:01)
--- NOTE | 2024-12-27 16:03 | W.PN.HOSP.TC ---
Today's Communication/Plan
-
Assessment / Plan
Assessment / Plan
Gen-AAOx3, NAD
HEENT-NC, AT, anicteric, clear oral mm
Neck-supple
CV-reg, no M, +S1/S2
Lungs-clear B/L
Abd-soft, NT, ND
Musculoskeletal-no edema, no deformity
Skin-warm and dry
Neuro-grossly non-focal
Psych-calm, cooperative
Ms. Centeno is a 89-year-old female with a medical history of colon cancer (with liver mets, status post colonic resection and anastomosis 2002, chemotherapy 2002 through 2004), lung cancer (right upper lobe wedge resection), vulvar cancer (radical
vulvectomy July 2024), A-fib (on warfarin), CHF, hypertension, and CKD stage IIIb who presented with generalized fatigue and lower abdominal pain. She denies dysuria or urinary frequency. She does report some dark-colored stool with no
diarrhea. Labs were generally unremarkable, renal function at baseline. Urinalysis showed pyuria with bacteria. CT imaging of her abdomen pelvis shows a hazy nodularity in the presacral space (unclear if this is inflammation versus metastasis).
She has been admitted for further evaluation and management of fatigue with dizziness and abdominal pain.
Postural dizziness:
-Possibly hypovolemic, feels slightly better after IV fluids
-Will check orthostatic vital signs daily
-May have to UTI which could be a contributing factor, UA shows pyuria with bacteriuria, cultures pending
-Continue antibiotics empirically for UTI
-Hemoglobin dropped from 14-11.7 after IV fluids, no overt evidence of active bleeding
-Will check stool for occult blood, hold home warfarin considering supratherapeutic INR, increased pantoprazole to twice daily, monitor hemoglobin daily
-CT imaging shows nonspecific hazy nodularity in the presacral space, unclear if this is inflammation or metastasis, either way we will treat empirically for UTI and recommend close follow-up with her primary oncologist
-Appreciate GI input
A-fib:
-Currently rate controlled
-Hold home warfarin considering supratherapeutic INR, monitor INR daily, no overt evidence of active bleeding
Hypertension:
-Continue home amlodipine 5 mg p.o. twice daily, atenolol 50 mg p.o. daily, and losartan 50 mg daily
CODE STATUS: DNR
Anticipated Discharge: 24 - 48 hours
Subjective/Interval History
-
Date of Service: December 27, 2024
Patient was seen and examined at bedside this morning. Feels better than when she was first admitted although still dizzy with ambulation.
Objective Data
-
Labs:
Laboratory Results
12/27/24
05:21
WBC 10.4
Hgb 11.7 L
Hct 36.2 L
Plt Count 229
PT 51.0 H
INR 5.67 H*
Sodium 136
Potassium 3.6
Chloride 103
Carbon Dioxide 23
BUN 21 H
Creatinine 1.3 H
Glucose 75
Calcium 9.6
Total Bilirubin 0.6
AST 18
ALT 13
Alkaline Phosphatase 148 H
Vital Signs:
Vital Signs
Temp Pulse Resp BP Pulse Ox
98.1 F 67 16 161/69 98
12/27/24 14:59 12/27/24 14:59 12/27/24 14:59 12/27/24 14:59 12/27/24 14:59
Review of Systems
-
History Source: Patient
All other systems: Reviewed and negative
Neuro: Reports Dizzy (With position changes)
Physical Exam
-
General: No Apparent Distress
[2024-12-27] MEDS: NSS IV (18:37)
[2024-12-27] MEDS: OSCAL CAL 500 500 MG PO (20:45)
[2024-12-28 03:29] VITALS: BP 163/69
[2024-12-28 06:30] VITALS: BMI 40.2
[2024-12-28 07:50] VITALS: BP 169/80
[2024-12-28] MEDS: VITAMIN C 500 MG PO (08:18)
[2024-12-28] MEDS: VITAMIN B-12 1000 MCG PO (08:18)
[2024-12-28] MEDS: PROTONIX 40 MG PO (08:18)
[2024-12-28] MEDS: TENORMIN 50 MG PO (08:18)
[2024-12-28] MEDS: WELLBUTRIN XL (24 hour extended release) 300 MG PO (08:18)
[2024-12-28] MEDS: COZAAR 50 MG PO (08:19)
[2024-12-28] MEDS: NORVASC 5 MG PO (08:19)
[2024-12-28 09:02] LABS: % Basophils 0.5 % (0-2); % Immature Granulocytes 0.6 % (0-0.5); % Lymphocytes 5.9 % (20.5-51.1); % Monocytes 10.8 % (1.7-9.3); % Neutrophils 80.2 % (42.2-75.2); Absolute Eosinophils 0.2 10^3/uL (0-0.7); Absolute Immature Granulocytes 0.1 10^3/uL (0-0.05); Absolute Lymphocytes 0.5 10^3/uL (1.2-3.4); Absolute Monocytes 0.9 10^3/uL (0.1-0.6); Absolute Neutrophils 6.9 10^3/uL (1.4-6.5); Hematocrit 36.9 % (37.0-47.0); Hemoglobin 11.5 g/dL (12.0-16.0); Mean Corp Hgb Conc. 31.2 g/dL (33.0-37.0); Mean Corpuscular Hgb 26.3 pg (27.0-31.0); Mean Corpuscular Volume 84.4 fL (81.0-99.0); Mean Platelet Volume 10.6 fL (7.4-10.4); Nucleated Red Blood Cells % 0 %; Platelet Count 193 10^3/uL (130-400); Red Blood Cell Count 4.37 10^6/uL (4.20-5.40); Red Cell Dist. Width 18.5 % (11.5-14.5); White Blood Cell Count 8.6 10^3/uL (4.8-10.8)
[2024-12-28 09:10] LABS: INR 3.34; PT 33.7 Sec (11.4-14.6)
[2024-12-28 09:24] VITALS: BP 146/83; BP 157/84; BP 173/85; PULSE 67; PULSE 72; PULSE 74
[2024-12-28 09:31] LABS: ALT (SGPT) 12 U/L (0-35); AST (SGOT) 17 U/L (14-36); Albumin 3.5 g/dl (3.5-5.0); Alkaline Phosphatase 149 U/L (38-126); Blood Urea Nitrogen 22 mg/dl (7-17); Calcium 9.8 mg/dl (8.4-10.2); Carbon Dioxide 24 mmol/L (22-30); Chloride 103 mmol/L (98-107); Estimated Creatinine Clearance 32 ml/min; Glucose 74 mg/dl (70-99); Potassium 3.5 mmol/L (3.5-5.1); Sodium 139 mmol/L (135-145); Total Bilirubin 0.8 mg/dl (0.2-1.3); Total Protein 6.3 g/dl (6.3-8.2)
[2024-12-28] MEDS: ROCEPHIN 1000 MG IV (10:02)
[2024-12-28] MEDS: STERILE WATER FOR INJECTION 10 ML IV (10:02)
[2024-12-28 11:35] VITALS: BP 170/83
[2024-12-28] MEDS: TYLENOL 650 MG PO (11:44)
--- NOTE | 2024-12-28 12:19 | W.DCSUMMARY ---
Discharge Summary
Discharge Data
Date of Admission: 12/26/24
Date of Discharge: 12/28/24
-
Pending Results: No
Hospital Course
Ms. Centeno is a 89-year-old female with a medical history of colon cancer (with liver mets, status post colonic resection and anastomosis 2002, chemotherapy 2002 through 2004), lung cancer (right upper lobe wedge resection), vulvar cancer (radical
vulvectomy July 2024), A-fib (on warfarin), CHF, hypertension, and CKD stage IIIb who presented with generalized fatigue and lower abdominal pain. She denies dysuria or urinary frequency. She does report some dark-colored stool with no
diarrhea. Labs were generally unremarkable, renal function at baseline. Urinalysis showed pyuria with bacteria. CT imaging of her abdomen pelvis shows a hazy nodularity in the presacral space (unclear if this is inflammation versus metastasis).
She was admitted for further evaluation and management of fatigue with dizziness and abdominal pain.
She was started on a course of antibiotics for UTI and given IV fluids for suspected hypovolemia which is likely the cause of her dizziness. Her dizziness did improve and she was able to ambulate independently with resolution of her dizziness. Her
hemoglobin level did drop from 14-11.5, however this is likely a dilutional effect after being given IV fluids. She had no evidence of active bleeding. However she did have a supratherapeutic INR of 5 at the time of presentation, and so her home
warfarin was held. At the time of hospital discharge her INR improved to 3.3. She was instructed to continue holding warfarin until at least Saturday 12/30 when she could speak with her pipe fitter marine for further guidance. Her orthostatic vital signs
were normal. She was continued on her home antihypertensive regimen. Her home dose of Lasix was restarted after IV fluids were discontinued.
Her abdominal pain was somewhat improved at the time of hospital discharge but not resolved. She reports the pain seems worse after eating and is not necessarily resolved after bowel movement. She does not report any dysuria or urinary frequency.
However, she will be continued empirically on course of antibiotics for treatment of cystitis which could be the cause of her symptoms considering labs noting pyuria and bacteriuria. Urine cultures were growing gram-negative bacilli, speciation and
sensitivities are pending. Alternatively, her abdominal pain could potentially be a recurrence of her malignancy. This will need to be further evaluated and managed in the outpatient setting by her primary oncologist. At this time, her pain is
tolerable and does not require inpatient management.
At the time of hospital discharge she was hemodynamically stable. She will be discharged home with family. She has established outpatient oncology follow-up. She will need to follow-up closely with her primary oncologist regarding ongoing cancer
care including further evaluation of her abdominal pain which may be related to recurrent malignancy. She should follow-up with her pipe fitter marine regarding warfarin dosing and monitoring of her INR. She should also follow-up closely with her
primary care physician.
Gen-AAOx3, NAD
HEENT-NC, AT, anicteric, clear oral mm
Neck-supple
CV-reg, no M, +S1/S2
Lungs-clear B/L
Abd-soft, mild TTP suprapubic region
Musculoskeletal-no edema, no deformity
Skin-warm and dry
Neuro-grossly non-focal
Psych-calm, cooperative
Discharge Plan
-
Patient Disposition: Home (Routine Discharge)
Discharge Diagnosis/Procedures: Abdominal pain and dizziness
Diet: No restrictions
Activity: As tolerated
Activity Restrictions/Additional Instructions:
Ms. Centeno is a 89-year-old female with a medical history of colon cancer (with liver mets, status post colonic resection and anastomosis 2002, chemotherapy 2002 through 2004), lung cancer (right upper lobe wedge resection), vulvar cancer (radical
vulvectomy July 2024), A-fib (on warfarin), CHF, hypertension, and CKD stage IIIb who presented with generalized fatigue and lower abdominal pain. She denies dysuria or urinary frequency. She does report some dark-colored stool with no
diarrhea. Labs were generally unremarkable, renal function at baseline. Urinalysis showed pyuria with bacteria. CT imaging of her abdomen pelvis shows a hazy nodularity in the presacral space (unclear if this is inflammation versus metastasis).
She was admitted for further evaluation and management of fatigue with dizziness and abdominal pain.
She was started on a course of antibiotics for UTI and given IV fluids for suspected hypovolemia which is likely the cause of her dizziness. Her dizziness did improve and she was able to ambulate independently with resolution of her dizziness. Her
hemoglobin level did drop from 14-11.5, however this is likely a dilutional effect after being given IV fluids. She had no evidence of active bleeding. However she did have a supratherapeutic INR of 5 at the time of presentation, and so her home
warfarin was held. At the time of hospital discharge her INR improved to 3.3. She was instructed to continue holding warfarin until at least Saturday 12/30 when she could speak with her pipe fitter marine for further guidance. Her orthostatic vital signs
were normal. She was continued on her home antihypertensive regimen. Her home dose of Lasix was restarted after IV fluids were discontinued.
Her abdominal pain was somewhat improved at the time of hospital discharge but not resolved. She reports the pain seems worse after eating and is not necessarily resolved after bowel movement. She does not report any dysuria or urinary frequency.
However, she will be continued empirically on course of antibiotics for treatment of cystitis which could be the cause of her symptoms considering labs noting pyuria and bacteriuria. Urine cultures were growing gram-negative bacilli, speciation and
sensitivities are pending. Alternatively, her abdominal pain could potentially be a recurrence of her malignancy. This will need to be further evaluated and managed in the outpatient setting by her primary oncologist. At this time, her pain is
tolerable and does not require inpatient management.
At the time of hospital discharge she was hemodynamically stable. She will be discharged home with family. She has established outpatient oncology follow-up. She will need to follow-up closely with her primary oncologist regarding ongoing cancer
care including further evaluation of her abdominal pain which may be related to recurrent malignancy. She should follow-up with her pipe fitter marine regarding warfarin dosing and monitoring of her INR. She should also follow-up closely with her
primary care physician.
Referrals:
Geni Ryder MD [Family Provider] -
Prescriptions:
New
cefpodoxime 200 mg tablet
200 mg PO BID 3 Days Qty: 6 0RF
Continued
losartan 50 mg Tablet
50 mg PO DAILY
furosemide 40 mg Tablet
40 mg PO DAILY
potassium chloride 10 mEq Capsule, Extended Release
20 meq PO BID
cyanocobalamin (vitamin B-12) 1,000 mcg Tablet
1,000 mcg PO DAILY
amlodipine 5 mg Tablet
5 mg PO BID
calcium carbonate [Calcium 600] 600 mg calcium (1,500 mg) Tablet
600 mg PO HS
ascorbic acid (vitamin C) [Vitamin C] 500 mg Tablet
500 mg PO DAILY
pantoprazole 40 mg Tablet,Delayed Release (Dr/Ec)
40 mg PO DAILY
albuterol sulfate 90 mcg/actuation Hfa Aerosol Inhaler
2 puff INHALATION R Q6HPRN PRN (Reason: sob)
atenolol 50 mg Tablet
50 mg PO DAILY
bupropion HCl 300 mg Tablet Extended Release 24 Hr
300 mg PO DAILY
Held
warfarin 2.5 mg Tablet
2.5 mg PO SUTUWETHSA
Hold Instructions: Hold until follow-up discussion with pipe fitter marine
warfarin 2.5 mg Tablet
2.5 mg PO MOFR
Hold Instructions: Hold until follow-up discussion with pipe fitter marine
Discharge Orders:
Discharge Patient (As Directed); Ordered 12/28/24
Ordered By: Hernando Zapata
Discharge Date and Time
Print Language: GUINEAN
[2024-12-28] MEDS: LASIX 40 MG PO (12:55)
--- NOTE | 2024-12-28 12:58 | CM ---
Patient from [facility] with Dx Postural dizziness. Room air. PT; likely no PT needs. OT; No skilled OT needed.
Met with patient and daughter Amee;
the patient resides alone in an apartment at [facility].
She was independent in ADLs and ambulation, only using her RW when she goes out.
DME - RW, CPAP
VN - current with [facility] for SN & PT - she will call the nurse there to resume service.
No prior SNF
PCP - Geni Ryder
Pharmacy - [facility]
Patient states she feels ready for d/c today. IMM completed. Her daughter will provide transport home.
No CM d/c needs identified.
Plan home today.
== END 2024-12-28 14:30 | disposition home or self-care (01) | DRG 312 ==
LOC: 3 WEST ACU 22:41
PROVIDERS: Clinical Nurse Specialist Family Health; Physician Assistant; ADMITTING PHYSICIAN Internal Medicine; ATTENDING PHYSICIAN Internal Medicine; CONSULT PHYSICIAN Internal Medicine Gastroenterology; EMERGENCY PHYSICIAN Student in an Organized Health Care Education/Training Program; FAMILY PHYSICIAN Internal Medicine; REFERRING PHYSICIAN Internal Medicine Hematology & Oncology
DX: I95.1 Orthostatic hypotension (principal); N39.0 Urinary tract infection, site not specified; I48.21 Permanent atrial fibrillation; I13.0 Hypertensive heart and chronic kidney disease with heart failure and stage 1 through stage 4 chronic kidney disease, or unspecified chronic kidney disease; I50.32 Chronic diastolic (congestive) heart failure; C78.7 Secondary malignant neoplasm of liver and intrahepatic bile duct; R10.9 Unspecified abdominal pain; B96.1 Klebsiella pneumoniae [K. pneumoniae] as the cause of diseases classified elsewhere; Z66 Do not resuscitate; R79.1 Abnormal coagulation profile; N18.32 Chronic kidney disease, stage 3b; Z85.44 Personal history of malignant neoplasm of other female genital organs; Z85.038 Personal history of other malignant neoplasm of large intestine; Z85.118 Personal history of other malignant neoplasm of bronchus and lung; Z79.01 Long term (current) use of anticoagulants; E86.1 Hypovolemia
CPT/HCPCS: 74177; 80053; 81003; 81015; 83690; 85025; 85610; 85730; 87077; 87086; 87186; 87502; 87811; 93005; 96361; 96374; 97161; 97166; 99285; Q9967